=== PATIENT | male | born 1960 | race American Indian/Alaskan Native ===

== ENCOUNTER 2017-09-16 14:46 | Emergency (ER) | payer MEDICAID ==
[~2017-09-16] VITALS: Ht 177.8 cm; Wt 105.0 kg
[2017-09-16] MEDS ORDERED: METHYLPREDNISOLONE SOD SUCC 125 MG/2 ML VIAL IM ONE (19:30)
[2017-09-16 20:28] VITALS: BP 100/61
== END 2017-09-16 20:32 | disposition home or self-care (01) ==
LOC: ER 16:08
DX: M10.9 Gout, unspecified (principal)
CPT/HCPCS: 36415; 73630; 84550; 96372; 99285; J2930; Z7610